=== PATIENT | female | born 1955 | race Caucasian/White ===

== ENCOUNTER → 2016-10-16 07:20 | Outpatient (CLI) | payer OTHER | END | disposition home or self-care (01) | LOC: D.RT 07:20 | DX: J44.9 Chronic obstructive pulmonary disease, unspecified (principal) ==

== ENCOUNTER → 2016-11-27 09:49 | Outpatient (CLI) | payer OTHER ==
[2016-11-29 17:11] LABS: ANA REFLEX - DIRECT Negative (Negative); ANGIOTENSIN CONVERTING ENZYME < 15 U/L (14-82)
== END | disposition home or self-care (01) ==
LOC: D.LAB 09:49 → D.CT 11:00
PROVIDERS: Internal Medicine Pulmonary Disease
DX: J84.10 Pulmonary fibrosis, unspecified (principal)

== ENCOUNTER 2017-01-09 11:31 | Day surgery (SDC) | payer OTHER ==
[~2017-01-09] VITALS: Ht 170.2 cm; Wt 92.7 kg
[2017-01-09 13:03] LABS: HEMATOCRIT 37.7 % (36.0-48.0); HEMOGLOBIN 12.2 g/dL (12-16); MCH 28.3 pg (26.0-34.0); MCHC 32.4 g/dL (31.0-37.0); MCV 87.5 fL (80.0-100.0); MEAN PLATELET VOLUME 9.8 fL (7.4-10.4); RBC 4.31 10x6/uL (4.00-5.40); RDW 12.7 % (11.5-14.5); WBC 9.4 10x3/uL (4.8-10.8)
[2017-01-09] MEDS ORDERED: SINGULAIR10 MG PO (13:07)
[2017-01-09] MEDS ORDERED: NEURONTIN 300300 MG PO (13:07)
[2017-01-09] MEDS ORDERED: LISINOPRIL-HCTZ1 T13 PO (13:07)
[2017-01-09] MEDS ORDERED: PROVENTIL HFA6.7 GM INH (13:08)
[2017-01-09] MEDS ORDERED: ROBAXIN-750750 MG PO (13:08)
[2017-01-09] MEDS ORDERED: VOLTAREN100 MG PO (13:08)
[2017-01-09] MEDS ORDERED: PEPCID40 MG PO (13:09)
[2017-01-09] MEDS ORDERED: ZOLOFT100 MG PO (13:09)
[2017-01-09] MEDS ORDERED: FLUTICASONE PRO16 GM NASAL (13:09)
[2017-01-09] MEDS ORDERED: ADVAIR 250/501 DISK INH (13:10)
[2017-01-09] MEDS ORDERED: KLONOPIN1 MG PO (13:10)
[2017-01-09] MEDS ORDERED: PRILOSEC10 M1 PO (13:10)
[2017-01-09] MEDS ORDERED: SPIRIVA18 MCG INH (13:11)
[2017-01-09] MEDS ORDERED: TRAZODONE HCL150 MG PO (13:11)
[2017-01-09 13:22] VITALS: BP 113/66; Ht 170.2 cm; Wt 92.7 kg
--- NOTE | 2017-01-09 16:16 | NUR ---
1535- FULL LIQUIDS TOLERATED. 1600- IV D/C'D, PT TOLERATED. CATHETER INTACT. 1605- DISCHARGE INSTRUCTIONS COMPLETED, PAPERWORK SIGNED 1610- PT DISCHARGED VIA WHEELCHAIR.
--- NOTE | 2017-01-13 17:25 | OP ---
PATIENT NAME: HOLLY AT MEDICAL RECORD: [id number] :59 LOCATION:D.OPS ADMISSION DATE: SURGEON: LE LALA DO DATE OF OPERATION: 01/09/2017 PROCEDURE: Colonoscopy with snare polypectomy. INDICATIONS FOR PROCEDURE: Anemia. SCOPE: Olympus video pediatric colonoscope. MEDICATIONS: Propofol 550 mg IV per anesthesia. ESTIMATED BLOOD LOSS: Minimal. WITHDRAWAL TIME: 12 minutes. FINDINGS: Informed consent was given. The patient was made comfortable with the above medication. After reaching an adequate level of sedation by slow IV push, the patient was placed on her left side. A digital rectal examination was performed and was normal. The endoscope was then advanced under direct visualization through the anus to the terminal ileum. The scope was slowly withdrawn and mucosa was carefully examined. There was a single polyp on this examination. It was located in the rectum. It appeared benign and sessile, measuring approximately 9 mm in diameter. It was removed with a hot snare in 1 piece and completely retrieved. Retroflexion was performed in the rectum and small nonbleeding internal hemorrhoids were visualized. The remainder of the examination was completely normal, including the terminal ileum. Scope was withdrawn from the patient. The patient tolerated the procedure well and there were no complications. ESTIMATED BLOOD LOSS: Minimal. IMPRESSION: 1. A single rectal polyp, which appears benign and sessile and is likely a tubular adenoma, was removed by snare polypectomy. 2. Nonbleeding small internal hemorrhoids. PLAN AND RECOMMENDATIONS: 1. Discharge home when recovery parameters are met. 2. Continue current medications. 3. Continue current diet. 4. Recommend repeat colonoscopy in 3 years based on the fact that 2 tubular adenomas were removed 6 months ago and a third probable tubular adenoma was removed on this examination. The patient will require an extended prep for her future colonoscopies. TRANSINT:[id number] Voice Confirmation ID: [id number] DOCUMENT ID: [id number] OPERATIVE REPORT [id number] KEYONHOLLY Estella LE LALA DO at 1725 CC: [id number] DICTATION DATE: 01/09/17 1455 COMPUTER AIDED DESIGN DESIGNER: 01/09/17 2330 [facility] 01/09/17 [place] [id number]
== END 2017-01-09 16:10 | disposition home or self-care (01) ==
LOC: D.OPS 11:31
PROVIDERS: Anesthesiology
DX: D64.9 Anemia, unspecified (principal); K62.1 Rectal polyp; J45.909 Unspecified asthma, uncomplicated; I10 Essential (primary) hypertension; K21.9 Gastro-esophageal reflux disease without esophagitis; G47.30 Sleep apnea, unspecified; Z01.812 Encounter for preprocedural laboratory examination

== ENCOUNTER → 2017-09-24 10:53 | Outpatient (CLI) | payer OTHER ==
[2017-01-09 13:22] VITALS: BMI 32.0
[~2017-09-24 10:53] MED LIST: ADVAIR 250/501 DISK INH; FLUTICASONE PRO16 GM NASAL; KLONOPIN1 MG PO; LISINOPRIL-HCTZ1 T13 PO; NEURONTIN 300300 MG PO; PEPCID40 MG PO; PRILOSEC10 M1 PO; PROVENTIL HFA6.7 GM INH; ROBAXIN-750750 MG PO; SINGULAIR10 MG PO; SPIRIVA18 MCG INH; TRAZODONE HCL150 MG PO; VOLTAREN100 MG PO; ZOLOFT100 MG PO
== END | disposition home or self-care (01) ==
LOC: D.RT 10:53
DX: Z02.71 Encounter for disability determination (principal)